=== PATIENT | female | born 1965 | race Caucasian/White ===

== ENCOUNTER 2020-08-23 05:54 | Emergency (ER) | payer BC ==
[~2020-08-23] VITALS: Ht 167.6 cm; Wt 73.5 kg
[2020-08-23] MEDS ORDERED: Prednisone20 MG PO (08:05)
[2020-08-23] MEDS ORDERED: ONDA4ODT MM (08:05)
[2020-08-23] MEDS ORDERED: Norco 10-325 T1 EACH PO (08:05)
[2020-08-23] MEDS ORDERED: TESTOSTERONE75 GM (08:11)
[2020-08-23] MEDS ORDERED: PROG100 (08:11)
[2020-08-23] MEDS ORDERED: ALBU2.5V5 (08:11)
== END 2020-08-23 08:29 | disposition home or self-care (01) ==
LOC: ER 05:54
DX: M54.10 Radiculopathy, site unspecified (principal); Z79.899 Other long term (current) drug therapy
CPT/HCPCS: 96372; 99283-25; J1885; J7512

== ENCOUNTER → 2024-01-08 | Outpatient (CLI) | payer BC ==
[~2024-01-08] MED LIST: ALBU2.5V5; Norco 10-325 T1 EACH PO; ONDA4ODT MM; PROG100; Prednisone20 MG PO; TESTOSTERONE75 GM
[2024-01-08 08:13] LABS: Hematocrit 41.9 % (33.0-51.0); Hemoglobin 13.9 g/dL (11.5-16.0); Mean Corpuscular HGB 30.4 pg (26.0-34.0); Mean Corpuscular HGB Conc 33.2 g/dL (31.5-36.5); Mean Corpuscular Volume 92 fL (80-100); Mean Platelet Volume 11.4 fL (9.1-12.4); Platelet Count 223 K/mm3 (150-400); RDW Coefficient Variation 13.8 % (11.7-14.2); RDW Standard Deviation 46.3 fL (35.1-46.3); Red Blood Cell Count 4.57 M/mm3 (3.80-5.20); White Blood Cell Count 8.53 K/mm3 (4.00-11.30)
[2024-01-08 09:09] LABS: Albumin/Globulin Ratio 1.3 (0.8-1.8); Bilirubin, Total 0.9 mg/dL (0.1-1.0); Bun/Creatinine Ratio 22.2 (12.0-20.0); Calcium, Blood 9.2 mg/dL (8.5-10.1); Creatinine, Blood 0.77 mg/dL (0.40-1.00); Globulin, Blood 3.1 g/dL (2.2-4.0); Progesterone 1.14 ng/mL; Total Protein, Blood 7.1 g/dL (6.4-8.2)
[2024-01-11 02:45] LABS: ESTRADIOL BY MASS SPEC 4.1 pg/mL; ESTROGENS TOTAL CALCULATION 19.7 pg/mL; ESTRONE BY MASS SPEC 15.6 pg/mL
== END ==
LOC: LAB 07:52 → LAB SHORT 07:52
PROVIDERS: Nurse Practitioner Family
DX: N95.8 Other specified menopausal and perimenopausal disorders (principal); E27.40 Unspecified adrenocortical insufficiency; E53.8 Deficiency of other specified B group vitamins; E55.9 Vitamin D deficiency, unspecified
CPT/HCPCS: 80053; 82306; 82607; 82671; 84144; 84402; 85027

== ENCOUNTER → 2024-04-06 | Outpatient (CLI) | payer BC ==
[2024-04-06 13:30] LABS: BASOPHILS ABSOLUTE AUTO 0.05 K/mm3 (0.00-0.23); BASOPHILS PERCENT AUTO 0 % (0-2); EOSINOPHILS ABSOLUTE AUTO 0.21 K/mm3 (0.00-0.68); EOSINOPHILS PERCENT AUTO 2 % (0-6); Hematocrit 41.9 % (33.0-51.0); Hemoglobin 13.9 g/dL (11.5-16.0); IMMATURE GRAN ABSOLUTE AUTO 0.04 K/mm3 (0.00-0.10); IMMATURE GRAN PERCENT AUTO 0 % (0-1); LYMPHOCYTES ABSOLUTE AUTO 3.33 K/mm3 (0.84-5.20); LYMPHOCYTES PERCENT AUTO 26 % (21-46); MONOCYTES ABSOLUTE AUTO 0.82 K/mm3 (0.16-1.47); MONOCYTES PERCENT AUTO 6 % (4-13); Mean Corpuscular HGB 30.5 pg (26.0-34.0); Mean Corpuscular HGB Conc 33.2 g/dL (31.5-36.5); Mean Corpuscular Volume 92 fL (80-100); Mean Platelet Volume 11.2 fL (9.1-12.4); NEUTROPHILS ABSOLUTE AUTO 8.59 K/mm3 (1.96-9.15); NEUTROPHILS PERCENT AUTO 66 % (41-73); Platelet Count 243 K/mm3 (150-400); RDW Coefficient Variation 13.9 % (11.7-14.2); RDW Standard Deviation 46.7 fL (35.1-46.3); Red Blood Cell Count 4.55 M/mm3 (3.80-5.20); White Blood Cell Count 13.04 K/mm3 (4.00-11.30)
[2024-04-06 14:01] LABS: Albumin/Globulin Ratio 1.2 (0.8-1.8); Bilirubin, Total 1.2 mg/dL (0.1-1.0); Bun/Creatinine Ratio 29.5 (12.0-20.0); Calcium, Blood 9.2 mg/dL (8.5-10.1); Creatinine, Blood 0.68 mg/dL (0.40-1.00); Globulin, Blood 3.2 g/dL (2.2-4.0); Total Protein, Blood 7.2 g/dL (6.4-8.2)
== END ==
LOC: LAB 13:23 → LAB SHORT 13:23
PROVIDERS: Internal Medicine Rheumatology
DX: M06.09 Rheumatoid arthritis without rheumatoid factor, multiple sites (principal); Z79.899 Other long term (current) drug therapy
CPT/HCPCS: 80053; 85025